=== PATIENT | female | born 1960 | race Caucasian/White ===

== ENCOUNTER 2020-04-06 13:06 | Outpatient (REF) | payer BC, SELFPAY ==
--- NOTE | ~2020-04-06 | MM_ITS ---
EXAMINATION: MM DIAGNOSTIC DIGITAL BREAST TOMOSYNTHESIS, BILATERAL US TARGETED BREAST, RIGHT CLINICAL INFORMATION: Right breast lump upper outer quadrant. The lifetime risk of breast cancer based on the Tyrer-Cuzick Model is 13%. COMPARISON: Mammography: 05/11/2017 and studies dating back to 04/29/2011. TECHNIQUE: Digital breast tomosynthesis is performed in both the craniocaudal and mediolateral oblique views along with computer-aided detection (CAD). Synthesized 2D images are generated from the tomosynthesis. FINDINGS: There are scattered areas of fibroglandular density (ACR BI-RADS breast composition Category b). There are no new significant masses, abnormal calcifications, or other abnormalities. Stable region of question architectural distortion about the upper outer aspect of the right breast is again seen. ULTRASOUND: Ultrasound in the region of abnormality demonstrates a majority hyperechoic ill-defined region measuring approximately 1.0 x 0.6 x 0.6 cm in size. No internal vascularity was appreciated. Patient has history of trauma in the past. This has the appearance of fat necrosis. No distal sound shadowing. Six-month follow up study is suggested to ensure stability. Results are discussed with the patient at time of visit. MM/MM tomosynthesis diagnostic BI IMPRESSION: 1. No significant change in appearance on mammography. 2. In region of palpable abnormality, ultrasound findings of a hyperechoic structure without distal sound shadowing with appearance of fat necrosis. Six-month follow up ultrasound suggested. ASSESSMENT: BI-RADS 3: Probably Benign. RECOMMENDATION: Diagnostic ultrasound in 6 months. This patient's information was entered into a reminder system with a target due date for their next mammogram.
--- NOTE | ~2020-04-06 | US_ITS ---
EXAMINATION: US DIAGNOSTIC ULTRASOUND BREAST, RIGHT CLINICAL INFORMATION: Lump. COMPARISON: Mammography of same day and studies dating back to February 13, 2009. TECHNIQUE: Ultrasound of the breast is performed with real-time hughes scale imaging and color Doppler. FINDINGS: Ultrasound region of abnormality demonstrates a majority hyperechoic ill-defined region measuring approximately 1.0 x 0.6 x 0.6 cm in size. No internal vascularity was appreciated. Patient has history of trauma in the past. This has the appearance of fat necrosis. No distal sound shadowing. Six-month follow-up study is suggested to ensure stability. Results are discussed with the patient at time of visit. US/US breast RT limited IMPRESSION: No significant change in appearance on mammography. In region of palpable abnormality ultrasound findings of a hyperechoic structure without distal sound shadowing with appearance of fat necrosis. Six-month follow-up ultrasound suggested. ASSESSMENT: BI-RADS 3: Probably Benign RECOMMENDATION: Diagnostic ultrasound in 6 months.
== END 2020-04-06 13:07 | disposition home or self-care (01) ==
LOC: HO.MAMMO 13:06
PROVIDERS: Visit Provider Advanced Practice Midwife
DX: N63.11 Unspecified lump in the right breast, upper outer quadrant (principal)
CPT/HCPCS: 76642; 77062; 77066

== ENCOUNTER 2020-11-16 11:05 | Outpatient (REF) | payer BC, SELFPAY ==
--- NOTE | ~2020-11-16 | US_ITS ---
EXAMINATION: US DIAGNOSTIC ULTRASOUND BREAST, RIGHT CLINICAL INFORMATION: Follow-up ultrasound right breast for small subtle hyperechoic area upper right breast on prior ultrasound possibly related to fat necrosis. Family history breast cancer, mother. TC score 13%. COMPARISON: Targeted ultrasound 04/06/2020, mammography 04/06/2020, 4-18, 12/26/2015. TECHNIQUE: Ultrasound right breast is targeted to the upper and outer quadrants. Grayscale imaging and color Doppler are performed without and with harmonics. FINDINGS: There is no focal suspicious finding. There is no cystic or solid mass, architectural abnormality, duct ectasia, or edema in the soft tissue planes. The subtle hyperechoic area noted on prior ultrasound is no longer demonstrated. Results are discussed with patient at time of imaging. At time of prior imaging, patient noted pea-sized palpable area upper right breast. The finding is no longer palpable. Patient has no palpable concern. No discharge. US/US breast RT limited IMPRESSION: Unremarkable targeted right breast ultrasound. Probable benign hyperechoic finding noted previously is no longer demonstrated. ASSESSMENT: BI-RADS 1: Negative RECOMMENDATION: Routine annual mammography screening. This patient's information was entered into a reminder system with a target due date for their next mammogram.
== END 2020-11-16 11:06 | disposition home or self-care (01) ==
LOC: HO.MAMMO 11:05
PROVIDERS: PCP Hospitalist; Visit Provider Hospitalist
DX: N64.1 Fat necrosis of breast (principal)
CPT/HCPCS: 76642

== ENCOUNTER 2021-05-01 08:00 | Outpatient (REF) | payer BC, SELFPAY ==
--- NOTE | ~2021-05-01 | MM_ITS ---
EXAMINATION: MM SCREENING DIGITAL BREAST TOMOSYNTHESIS, BILATERAL CLINICAL INFORMATION: Screening. Asymptomatic. The lifetime risk of breast cancer based on the Tyrer-Cuzick Model is 11.8%. COMPARISON: Mammography: April 06, 2020 and studies dating back to February 13, 2009 TECHNIQUE: Digital breast tomosynthesis is performed in both the craniocaudal and mediolateral oblique views along with computer-aided detection (CAD). Synthesized 2D images are generated from the tomosynthesis. FINDINGS: There are scattered areas of fibroglandular density (ACR BI-RADS breast composition Category b). There are no significant masses, abnormal calcifications, or other abnormalities. MM/MM tomosynthesis screening BI IMPRESSION: There are no significant changes from prior study. ASSESSMENT: BI-RADS 1: Negative RECOMMENDATION: Routine annual mammography screening. This patient's information was entered into a reminder system with a target due date for their next mammogram.
== END 2021-05-01 08:01 | disposition home or self-care (01) ==
LOC: HO.MAMMO 08:00
PROVIDERS: Visit Provider Hospitalist
DX: Z12.31 Encounter for screening mammogram for malignant neoplasm of breast (principal)
CPT/HCPCS: 77063; 77067

== ENCOUNTER 2023-06-04 07:55 | Outpatient (REF) | payer OTHER, SELFPAY ==
--- NOTE | ~2023-06-04 | MM_ITS ---
EXAMINATION: MM SCREENING DIGITAL BREAST TOMOSYNTHESIS, BILATERAL CLINICAL INFORMATION: Screening. Asymptomatic. Positive family history of breast cancer. COMPARISON: Mammography: 05/01/2021, 04/06/2020, 05/11/17, 12/26/2015, TECHNIQUE: Digital breast tomosynthesis is performed in both the craniocaudal and mediolateral oblique views along with computer-aided detection (CAD). Synthesized 2D images are generated from the tomosynthesis. FINDINGS: There are scattered areas of fibroglandular density (ACR BI-RADS breast composition Category b). There are no suspicious masses, suspicious grouped calcifications, or areas of architectural distortion in either breast. The parenchymal pattern is stable from prior exams. No skin or axillary abnormality. MM/MM tomosynthesis screening BI IMPRESSION: No mammographic evidence of malignancy. No interval change from prior. ASSESSMENT: BI-RADS BI-RADS 1 - Negative RECOMMENDATION: Routine annual mammography screening. 1 year F/U This examination should not preclude the clinical evaluation of a suspicious palpable abnormality. This patient's information was entered into a reminder system with a target due date for their next mammogram.
== END 2023-06-04 07:56 | disposition home or self-care (01) ==
LOC: HO.MAMMO 07:55
PROVIDERS: PCP Internal Medicine; Visit Provider Internal Medicine
DX: Z12.31 Encounter for screening mammogram for malignant neoplasm of breast (principal)
CPT/HCPCS: 77063; 77067

== ENCOUNTER → 2023-06-04 08:00 | Outpatient (BNV) | payer OTHER, SELFPAY | PROVIDERS: PCP Internal Medicine; Visit Provider Radiology Diagnostic Radiology | DX: Z12.31 Encounter for screening mammogram for malignant neoplasm of breast (principal) | CPT/HCPCS: 77063; 77067 ==